=== PATIENT | female | born 1955 | race Caucasian/White ===

== ENCOUNTER → 2016-09-08 | Outpatient (CLI) | payer OTHER ==
--- NOTE | 2016-09-08 14:21 | RAD ---
INDICATION: RHEUMATOID ARTHRITIS. OSTEOPOROSIS. COMPARISON: None. IMPRESSION: Right wrist: 2 views are obtained without definite acute fracture or dislocation. Small round lucency is seen at the third metacarpal head. Could be a small subchondral cyst or erosion. There is not a large amount of degenerative changes identified.
--- NOTE | 2016-09-08 14:22 | RAD ---
INDICATION: RHEUMATOID ARTHRITIS. OSTEOPOROSIS. COMPARISON: None. IMPRESSION: Right hip: 2 views obtained. No evidence of acute fracture or dislocation. There is some subtle lucency seen projecting over the acetabulum. Could be from subchondral cyst formation or erosion.
== END | disposition home or self-care (01) ==
LOC: RAD 09:15
PROVIDERS: ATTEND Surgery
DX: M06.831 Other specified rheumatoid arthritis, right wrist (principal); M81.8 Other osteoporosis without current pathological fracture
CPT/HCPCS: 73100; 73502